=== PATIENT | female | born 1990 | race Caucasian/White ===

== ENCOUNTER 2020-05-21 13:47 | Inpatient (IN) ==
--- NOTE | 2020-05-21 14:34 | History & Physical Report ---
Date of Service May 21, 2020 Assessment & Plan (1) PROM (premature rupture of membranes): (2) 40 weeks gestation of : admit, iv, labs. will plan to induce with pitocin if no labor by 4-6hr from rom. pt declines such now and prefers to see if labor develops. fhts categ 1. History of Present Illness Chief Complaint: leaking since about 1240pm today, clear, one [facility] Primary Care Provider: Compa Lockhart MD 30yo at 40 0/7 wks ega presents to L&D with above cc. Noting some ctx but irregular. No vb. +FM PNC c/b 1. normal plt function analysis test (mother with plt storage pool disease) PNL rh pos, ri, gbs neg OBH: g1 GYNH: nl paps no stds Allergies Allergy/AdvReac Type Severity Reaction Status Date / Time No Known Drug Allergies Allergy Verified 05/16/20 13:41 Home Medications Medication Instructions Recorded Confirmed Type prenat.vits,parag,lll-rkoy-pqtnb 1 tab PO DAILY 09/29/19 05/21/20 History calcium carbonate-vitamin D3 1 tab PO DAILY 05/21/20 05/21/20 History [Calcium + D] Patient History Medical History (Updated 05/21/20 @ 14:34 by Rebecca Arauz MD, FACOG) Asthma Depression Encounter for anatomic survey Hx of varicella Surgical History [place] teeth removed Family History (Updated 09/29/19 @ 09:56 by Monique Vasquez) Grandfather (Paternal) Diabetes Family/Other Type 1 diabetes Mother Storage pool disease Other Asthma Social History (Updated 09/29/19 @ 09:57 by Monique Vasquez) Smoking Status: Never smoker Hx Alcohol Use: No Hx Substance Use: No Preferred Language: Bulgarian Communication Ability: Effective Beliefs That Will Affect Care: None marital status: marital status details: Monty Arevalo (29) [phone] Current Living Situation: Spouse Current Living Situation Comment: lives with spouse, 1 dog current occupational status: employed current occupation: school psychologist Other Information That Helps Us Care for You: No Feels Safe at Home: Yes Safety Concerns: Feels Safe At This Time Physical Exam Constitutional: WD/WN, vitals as above Respiratory: normal respiratory effort, lungs clear to auscultation Cardiovascular: Rate/Rhythm: regular rate and regular rhythm Gastrointestinal (Abdomen): soft gravid nt Musculoskeletal: no edema nontender calves Neurologic: grossly normal Psychiatric: A+Ox3, euthymic affect Genitourinary: OB Exam Abdomen: + estimated weight (7#) Manual OB Exam: + cervical dilation 3 cm, + cervical effacement 80%, + station -2 and + amniotic fluid (+pooling on SSE) clear, nitrazine positive and ferning present OB Exam Monitor Tracing: + external FHT monitor used (130 mod variability), + external uterine monitor used (irreg), + category I and + normal FHT variability Results & Data ([facility]) Vital Signs (Past 12 Hours) Vital Signs Pulse Resp BP 05/21/20 14:03 16 05/21/20 13:57 104 H 117/77 Coding Level of Care Code None Diagnoses PROM (premature rupture of membranes) O42.90 40 weeks gestation of Z3A.40
[2020-05-21] MEDS ORDERED: OXYTOCIN 30 UNITS/500 ML BAG IV PRN (14:35)
[2020-05-21 15:05] LABS: Hematocrit (blood only) 37.9 % (37-47); Hemoglobin 12.7 g/dL (12.0-16.0); Mean Corpuscular Hemoglobin 28.9 pg (25-34); Mean Corpuscular Hgb Conc 33.5 g/dL (32-36); Mean Corpuscular Volume 86.3 fL (80-100); Mean Platelet Volume 10.9 fL (7.4-10.4); Platelet Count 163 K/uL (130-400); RDW Coefficient of Variation 12.8 % (11.5-14.5); RDW Standard Deviation 40.5 fL (36.4-46.3); Red Blood Count 4.39 M/uL (4.2-5.4); White Blood Count 8.26 K/uL (4.8-10.8)
[2020-05-21] MEDS: LACTATED RINGER'S 1,000 ML IV PRN ×3 (16:48→23:27)
[2020-05-21] MEDS ORDERED: ePHEDrine sulfate 50 MG/ML AMP ONE (16:50)
[2020-05-21] MEDS ORDERED: fentaNYL citrate 100 MCG/2 ML VIAL ONE (16:50)
[2020-05-21] MEDS ORDERED: SODIUM CHLORIDE 0.9% INJ 10 ML VIAL ONE (16:50)
[2020-05-21] MEDS ORDERED: fentaNYL 2MCG/ML ROPIVACAINE 1.25MG/ML 100 ML BAG EPI ONE (16:50)
[2020-05-21] MEDS ORDERED: BUPIVACAINE 0.25% 30 ML VIAL ONE (16:50)
--- NOTE | 2020-05-21 17:14 | Anesthesiology Consultation ---
Date of Service May 21, 2020 Assessment & Plan (1) Encounter for pre-operative examination: Chart Review Chart Review: Acceptable Risk for Surgery and Patient NOT seen in Pre Admission Testing Consults Requested none ASA ASA2 Proposed Anesthesia Anesthesia Type: Labor Epidural Risk / Benefits Reviewed With: PT / POA / Parent / Guardian, Accepts Plan and Informed Consent Obtained History Height/Weight Height: 5 ft 1 in Weight: 70.76 kg Allergies Allergy/AdvReac Type Severity Reaction Status Date / Time No Known Drug Allergies Allergy Verified 05/16/20 13:41 Medications Home Medications Medication Instructions Recorded Confirmed Last Taken prenat.vits,parag,umq-tkxc-rkwlk 1 tab PO DAILY 09/29/19 05/21/20 05/20/20 calcium carbonate-vitamin D3 1 tab PO DAILY 05/21/20 05/21/20 05/20/20 [Calcium + D] Active Medications Generic Name Dose Route Start Last Admin Trade Name Freq PRN Reason Stop Dose Admin Lactated Ringer's 1,000 mls @ 125 mls/hr 05/21/20 14:35 05/21/20 16:48 Lr IV 05/23/20 14:34 999 mls/hr .Q8H PRN Administration L&D Protocol Protocol NPO Date Last Intake of Fluids: 05/21/20 Time Last Intake of Fluids: 17:12 Date Last Intake of Solids: 05/21/20 Time Last Intake of Solids: 10:00 Past Medical History Medical History Asthma Depression Encounter for anatomic survey Hx of varicella Exercise / Class Metabolic Activity II 4-5 Yardwork/Stairs/Walk up hill Negative for chest pain or shortness of breath. Past Family History Family History Grandfather (Paternal) Diabetes Family/Other Type 1 diabetes Mother Storage pool disease Other Asthma Past Surgical History Surgical History [place] teeth removed Past Anesthesia History No Hx of Anesthesia Complications History of PONV No Hx of PONV Social History Smoking Status: Never smoker Hx Alcohol Use: No Hx Substance Use: No substance use type: does not use Review of Systems Patient denies history of abnormal bleeding or bleeding disorder. Patient denie s active use of anticoagulants other than low dose aspirin. Patient denies numbness, tingling or weakness in lower extremities. Physical Exam Vital Signs Last Vital Signs Temp 37.3 C 05/21/20 15:25 Pulse 87 05/21/20 17:02 Resp 18 05/21/20 15:43 BP 115/71 05/21/20 17:02 Constitutional not obese (gravid uterus) ENMT Mouth: no TMJ abnormality and oral opening not small Thyromental Distance: > or= 3.5 Finger Breadths Mallampati Class: II Neck normal visual inspection; neck extension not limited Respiratory normal respiratory effort Auscultation: lungs clear to auscultation bilaterally Cardiovascular Rate/Rhythm: regular rate and regular rhythm Heart Sounds: no murmur Neurologic moves all extremities Motor/Sensory: no sensory deficit Psychiatric Orientation: alert and oriented x 3 Testing Laboratory Results 05/21/20 14:48
[2020-05-21] MEDS ORDERED: ePHEDrine sulfate 50 MG/ML AMP IV PRN (18:12)
[2020-05-21] MEDS ORDERED: diphenhydrAMINE 50 MG/ML VIAL IV PRN (18:12)
[2020-05-21] MEDS ORDERED: NALOXONE HCL 0.4 MG/1 ML VIAL/CARP IV PRN (18:12)
[2020-05-21] MEDS ORDERED: fentaNYL 2MCG/ML ROPIVACAINE 1.25MG/ML 100 ML BAG EPI PRN (18:12)
[2020-05-21] MEDS ORDERED: NALOXONE HCL 1 MG in SODIUM CHLORIDE 0.9% 1000ML 1,000 ML IV PRN (18:12)
[2020-05-21] MEDS ORDERED: ONDANSETRON INJ 2 MG/ML 2 ML VIAL IV PRN (18:12)
--- NOTE | 2020-05-21 20:08 | Labor Progress Brief Note ---
Date of Service May 21, 2020 Subjective Reason For Note: Routine Evaluation comfortable with epidural Assessment & Plan (1) 40 weeks gestation of : (2) PROM (premature rupture of membranes): good cx change. spont labor pattern. fhts categ 1. Admission and Anticipated Discharge Date Admission Date: May 21, 2020 Physical Exam Constitutional: WD/WN, vitals as above Genitourinary: Manual OB Exam: + cervical dilation 5 cm, + cervical effacement 90% and + station -1 OB Exam Monitor Tracing: + external FHT monitor used (130 mod variability, reactive), + external uterine monitor used (q3), + category I and + normal FHT variability Results & Data ([facility]) Vital Signs (Past 12 Hours) Vital Signs Temp Pulse Resp BP Pulse Ox 05/21/20 20:03 83 119/69 05/21/20 20:02 82 97 05/21/20 19:57 94 H 97 05/21/20 19:52 89 97 05/21/20 19:48 79 112/68 05/21/20 19:47 85 97 05/21/20 19:42 93 H 97 05/21/20 19:38 97 H 110/66 05/21/20 19:37 90 97 05/21/20 19:32 86 97 05/21/20 19:29 99 H 109/64 05/21/20 19:27 91 H 97 05/21/20 19:22 100 H 96 05/21/20 19:17 96 H 105/64 97 05/21/20 19:12 88 97 05/21/20 19:08 90 110/66 05/21/20 19:07 98.8 F 87 18 97 05/21/20 19:02 87 98 05/21/20 19:00 18 05/21/20 18:59 91 H 110/68 05/21/20 18:57 86 97 05/21/20 18:52 91 H 97 05/21/20 18:47 88 110/65 96 05/21/20 18:42 93 H 97 05/21/20 18:38 86 110/65 05/21/20 18:37 77 98 05/21/20 18:32 94 H 98 05/21/20 18:30 16 05/21/20 18:27 83 97 05/21/20 18:26 89 112/67 05/21/20 18:24 89 117/74 05/21/20 18:22 90 117/70 98 05/21/20 18:20 91 H 115/69 05/21/20 18:18 99 H 112/69 05/21/20 18:17 97 H 98 05/21/20 18:16 88 109/62 05/21/20 18:14 90 108/62 05/21/20 18:12 89 109/64 97 05/21/20 18:10 94 H 110/64 05/21/20 18:08 93 H 110/66 05/21/20 18:07 94 H 98 05/21/20 18:06 90 108/63 05/21/20 18:04 86 110/65 05/21/20 18:02 86 116/65 99 05/21/20 17:58 88 124/69 05/21/20 17:57 91 H 130/75 100 05/21/20 17:54 82 119/75 05/21/20 17:52 93 H 98 05/21/20 17:47 91 H 124/79 96 05/21/20 17:42 98 H 98 05/21/20 17:39 88 120/80 05/21/20 17:38 87 94 05/21/20 17:35 88 99 05/21/20 17:30 75 20 99 05/21/20 17:17 73 112/61 05/21/20 17:02 87 115/71 05/21/20 17:00 98.6 F 20 05/21/20 16:47 86 109/58 L 05/21/20 15:43 18 05/21/20 15:30 18 05/21/20 15:25 99.1 F 05/21/20 15:21 89 112/71 05/21/20 15:00 16 05/21/20 14:15 20 05/21/20 14:03 16 05/21/20 13:57 104 H 117/77 Coding Level of Care Code None Diagnoses 40 weeks gestation of Z3A.40 PROM (premature rupture of membranes) O42.90
[2020-05-21] MEDS ORDERED: ACETAMINOPHEN 325 MG TAB PO PRN (23:54)
[2020-05-21] MEDS ORDERED: AMPICILLIN 2,000 MG in SODIUM CHLOR 0.9% AD-VAN 100 ML IV STA (23:55)
[2020-05-21] MEDS ORDERED: ACETAMINOPHEN 325 MG TAB ONE (23:57)
[2020-05-22] MEDS ORDERED: OXYTOCIN 30 UNITS/500 ML BAG IV PRN ×2 (00:06→03:38)
[2020-05-22] MEDS ORDERED: BUPIVACAINE 0.25% 30 ML VIAL ONE (00:33)
--- NOTE | 2020-05-22 03:13 | Labor Progress Brief Note ---
Date of Service May 22, 2020 Subjective Reason For Note: Routine Evaluation pt pushing, denies pain, can feel her ctx Assessment & Plan (1) 40 weeks gestation of : (2) PROM (premature rupture of membranes): cont 2nd stage. fhts categ 2. Admission and Anticipated Discharge Date Admission Date: May 21, 2020 Physical Exam Constitutional: WD/WN, vitals as above Genitourinary: Manual OB Exam: + cervical dilation 10 cm, + cervical effacement 100% and + station + 3 OB Exam Monitor Tracing: + external FHT monitor used (165 mod variability, +scalp stim response, variables), + external uterine monitor used (q2-3), + category II and + normal FHT variability Results & Data ([facility]) Vital Signs (Past 12 Hours) Vital Signs Temp Pulse Resp BP Pulse Ox 05/22/20 03:08 80 91 05/22/20 03:06 98.8 F 18 05/22/20 03:05 76 96 05/22/20 03:04 78 115/57 L 05/22/20 03:01 82 18 89 L 05/22/20 03:00 76 97 05/22/20 02:55 72 98 05/22/20 02:54 67 81 L 05/22/20 02:50 69 98 05/22/20 02:48 77 106/58 L 05/22/20 02:44 171 H 97 05/22/20 02:40 74 88 L 05/22/20 02:39 76 97 05/22/20 02:34 97 H 98 05/22/20 02:32 82 18 88 L 05/22/20 02:29 79 97 05/22/20 02:26 79 92 05/22/20 02:24 71 97 05/22/20 02:19 107 H 97 05/22/20 02:18 62 111/56 L 05/22/20 02:14 75 97 05/22/20 02:11 73 92 05/22/20 02:09 86 97 05/22/20 02:05 80 112/58 L 86 L 05/22/20 02:04 73 97 05/22/20 02:01 18 05/22/20 01:59 86 97 05/22/20 01:58 69 86 L 05/22/20 01:53 68 97 05/22/20 01:49 107 H 97/55 L 05/22/20 01:48 101 H 97 05/22/20 01:43 72 96 05/22/20 01:38 65 97 05/22/20 01:35 62 96/51 L 05/22/20 01:33 61 96 05/22/20 01:28 67 96 05/22/20 01:23 70 96 05/22/20 01:20 64 94 05/22/20 01:19 62 94/51 L 05/22/20 01:18 63 95 05/22/20 01:13 69 96 05/22/20 01:08 74 94 05/22/20 01:04 68 96/55 L 05/22/20 01:03 71 96 05/22/20 01:01 18 05/22/20 00:58 74 96 05/22/20 00:53 73 95 05/22/20 00:52 99.9 F H 18 05/22/20 00:48 77 94/50 L 95 05/22/20 00:47 76 94 05/22/20 00:43 101 H 97 05/22/20 00:40 91 H 109/57 L 93 05/22/20 00:38 89 98 05/22/20 00:35 88 113/57 L 05/22/20 00:33 96 H 97 05/22/20 00:28 96 H 97 05/22/20 00:23 93 H 97 05/22/20 00:19 96 H 110/56 L 05/22/20 00:18 94 H 96 05/22/20 00:13 94 H 97 05/22/20 00:08 91 H 97 05/22/20 00:03 96 H 112/60 97 05/22/20 00:01 20 05/21/20 23:58 93 H 96 05/21/20 23:56 97 H 86 L 05/21/20 23:53 108 H 117/58 L 96 05/21/20 23:51 100 H 88 L 05/21/20 23:50 100.8 F H 05/21/20 23:48 101 H 96 05/21/20 23:42 106 H 98 05/21/20 23:37 108 H 96 05/21/20 23:34 96 H 124/58 L 05/21/20 23:32 96 H 97 05/21/20 23:27 100.0 F H 95 H 18 97 05/21/20 23:24 109 H 91 05/21/20 23:22 100 H 98 05/21/20 23:19 103 H 120/69 05/21/20 23:17 101 H 96 05/21/20 23:12 93 H 97 05/21/20 23:07 100 H 97 05/21/20 23:03 108 H 111/61 05/21/20 23:02 109 H 96 05/21/20 22:57 107 H 97 05/21/20 22:52 99 H 96 05/21/20 22:48 105 H 117/65 05/21/20 22:47 104 H 97 05/21/20 22:42 114 H 97 05/21/20 22:37 107 H 96 05/21/20 22:34 100 H 119/66 05/21/20 22:32 104 H 97 05/21/20 22:31 99.3 F 18 05/21/20 22:27 98 H 97 05/21/20 22:22 109 H 97 05/21/20 22:19 93 H 114/68 05/21/20 22:17 92 H 98 05/21/20 22:12 85 98 05/21/20 22:07 98 H 99 05/21/20 22:04 111 H 122/65 05/21/20 22:02 109 H 100 05/21/20 21:57 88 97 05/21/20 21:52 89 98 05/21/20 21:50 76 103/50 L 05/21/20 21:47 74 97 05/21/20 21:42 84 97 05/21/20 21:37 82 97 05/21/20 21:35 72 104/53 L 05/21/20 21:32 86 98 05/21/20 21:27 85 97 05/21/20 21:22 75 97 05/21/20 21:18 79 102/57 L 05/21/20 21:17 77 98 05/21/20 21:12 85 97 05/21/20 21:07 78 98 05/21/20 21:04 71 106/54 L 05/21/20 21:02 72 98 05/21/20 20:57 76 98 05/21/20 20:52 86 98 05/21/20 20:48 91 H 112/74 05/21/20 20:47 89 97 05/21/20 20:42 89 97 05/21/20 20:37 94 H 97 05/21/20 20:34 94 H 109/65 05/21/20 20:32 96 H 96 05/21/20 20:27 87 96 05/21/20 20:26 98.8 F 18 05/21/20 20:22 88 96 05/21/20 20:18 74 114/68 05/21/20 20:17 84 96 05/21/20 20:12 95 H 97 05/21/20 20:07 86 97 05/21/20 20:03 83 119/69 05/21/20 20:02 82 97 05/21/20 19:57 94 H 97 05/21/20 19:54 18 05/21/20 19:52 89 97 05/21/20 19:48 79 112/68 05/21/20 19:47 85 97 05/21/20 19:42 93 H 97 05/21/20 19:38 97 H 110/66 05/21/20 19:37 90 97 05/21/20 19:32 86 97 05/21/20 19:29 99 H 109/64 05/21/20 19:27 91 H 97 05/21/20 19:22 100 H 96 05/21/20 19:17 96 H 105/64 97 05/21/20 19:12 88 97 05/21/20 19:08 90 110/66 05/21/20 19:07 98.8 F 87 18 97 05/21/20 19:02 87 98 05/21/20 19:00 18 05/21/20 18:59 91 H 110/68 05/21/20 18:57 86 97 05/21/20 18:52 91 H 97 05/21/20 18:47 88 110/65 96 05/21/20 18:42 93 H 97 05/21/20 18:38 86 110/65 05/21/20 18:37 77 98 05/21/20 18:32 94 H 98 05/21/20 18:30 16 05/21/20 18:27 83 97 05/21/20 18:26 89 112/67 05/21/20 18:24 89 117/74 05/21/20 18:22 90 117/70 98 12/28/20 18:20 91 H 115/69 05/21/20 18:18 99 H 112/69 05/21/20 18:17 97 H 98 05/21/20 18:16 88 109/62 05/21/20 18:14 90 108/62 05/21/20 18:12 89 109/64 97 05/21/20 18:10 94 H 110/64 05/21/20 18:08 93 H 110/66 05/21/20 18:07 94 H 98 05/21/20 18:06 90 108/63 05/21/20 18:04 86 110/65 05/21/20 18:02 86 116/65 99 05/21/20 17:58 88 124/69 05/21/20 17:57 91 H 130/75 100 05/21/20 17:54 82 119/75 05/21/20 17:52 93 H 98 05/21/20 17:47 91 H 124/79 96 05/21/20 17:42 98 H 98 05/21/20 17:39 88 120/80 05/21/20 17:38 87 94 05/21/20 17:35 88 99 05/21/20 17:30 75 20 99 05/21/20 17:17 73 112/61 05/21/20 17:02 87 115/71 05/21/20 17:00 98.6 F 20 05/21/20 16:47 86 109/58 L 05/21/20 15:43 18 05/21/20 15:30 18 05/21/20 15:25 99.1 F 05/21/20 15:21 89 112/71 Coding Level of Care Code None Diagnoses 40 weeks gestation of Z3A.40 PROM (premature rupture of membranes) O42.90
[2020-05-22] MEDS ORDERED: oxyCODONE/ACETAMINOPHEN 5mg/325mg TAB PO PRN (03:38)
[2020-05-22] MEDS ORDERED: ACETAMINOPHEN 325 MG TAB PO PRN (03:38)
--- NOTE | 2020-05-22 03:40 | Delivery Summary ---
Vaginal Delivery Summary Date of Service May 22, 2020 The patient dilated to complete and pushed to deliver a viable male Apga rs 8 and 10 via over first degree perineal laceration. Mouth and nose bulb suctioned at perineum. Shoulders and body delivered with ease. Infant was vigorous and crying at . Cord clamped at 30 seconds of life and to maternal abdomen where the cord was then doubly clamped and cut. Placenta delivered spontaneously and intact, three-vessel cord. Hemostasis achieved with dilute pitocin and uterine massage and drainage of the bladder for approximately 5 cc under sterile conditions. Laceration repaired in routine fashion with 3-0 vicryl. Bilateral labial lacerations reapproximated with 3-0 and 4-0 vicryl. Cervix and sulci intact. EBL 300 cc. Mother and baby stable recovery. MNP Vaginal Delivery Charge Vaginal Delivery Codes: 41947 global code for the antepartum, delivery, and post-
[2020-05-22] MEDS ORDERED: OXYTOCIN 20 UNITS in LACTATED RINGER'S 1,000 ML IV SCH (03:45)
[2020-05-22] MEDS ORDERED: DIPHTHERIA/TETANUS/PERTUSSIS 0.5 ML SYR/VIAL IM ONE (03:47)
[2020-05-22] MEDS ORDERED: BENZOCAINE 20% AER SPR 82.5 GM CAN EXT PRN (03:47)
[2020-05-22] MEDS ORDERED: HYDROCORTISONE ACETATE 25 MG SUPP PR PRN (03:47)
[2020-05-22] MEDS ORDERED: SUPERCREAM 0.870% 15 GM JAR EXT PRN (03:47)
--- NOTE | 2020-05-22 05:09 | Anesthesia Procedure Note ---
Date of Service May 22, 2020 Anesthesia Post Epidural Note Vital Signs Vital Signs: Temp Pulse Resp BP Pulse Ox 37.1 C 78 18 108/59 L 96 05/22/20 03:06 05/22/20 04:58 05/22/20 04:50 05/22/20 04:58 05/22/20 03:35 Notes Mental Status: alert / awake / arousable and participated in evaluation Nausea / Vomiting: adequately controlled Pain: adequately controlled Airway Patency, RR, SpO2: stable & adequate BP & HR: stable & adequate Hydration State: stable & adequate Neuraxial Anesthesia: was administered and sensory block is resolving Anesthetic Complications: no major complications apparent and Pt Satisfied with anesthetic care Epidural: Removed without complications and With tip intact
[2020-05-22] MEDS: IBUPROFEN 600 MG TAB PO PRN ×4 (08:32→20:58)
[2020-05-22] MEDS: PRENATAL VITAMIN 1 TAB PO SCH (08:32)
[2020-05-22] MEDS: DOCUSATE SODIUM 100 MG CAP PO SCH ×2 (08:33→20:59)
--- NOTE | 2020-05-23 05:21 | Obstetrical Progress Note ---
Date of Service May 23, 2020 Assessment & Plan (1) : S/p Day 1 - Feels well today. Eating well, voiding well, ambulating well. - Pain well-controlled with ibuprofen 600mg Q4H PRN. - Vital signs reviewed and WNL. - Hemoglobin reviewed. 12.7 (pre-) - Blood Type: A+, antibody negative, GBS negative, Rubella Immune, COVID-19 negative - Continue routine care: encourage ambulation, monitor and control pain with Motrin PRN, continue regular OB diet, monitor lochia - Encourage breast feeding. - Pt counselled on discharge instructions - After discharge, will have 6-wk follow-up with Dr. Arauz Admission and Anticipated Discharge Date Admission Date: May 21, 2020 Supervising Physician Co-Signing Physician Notes Patient seen and evaluated and agree with the above findings and plan. Stable for discharge today per patient request Subjective HPI Luanne Arevalo is a 30 y/o female who is PPD 1 spontaneous vaginal delivery at 40w1d. She reports feeling well overall this morning. No abdominal cramping and 0-2/10 pain well managed on analgesics. Voiding well. Tolerating meals overnight without difficulty. Patient has been able to ambulate some. passing gas and no bowel movement. Has persistent lochia with no improvement this morning. Currently . Review of Systems Review of Systems: ROS Denies fever or chills. Denies shortness of breath or cough. Denies chest pain. Denies breast pain. Denies dysuria. Denies leg pain or leg swelling. Physical Exam Physical Exam: General: Alert, oriented. No acute distress. Cardiac: Regular rate and rhythm. No murmurs. Respiratory: Clear to auscultation bilaterally a/p, no wheezes/rales/rhonchi. No increased work of breathing. Symmetrical chest rise. No respiratory distress. Abdomen: Soft, nontender, nondistended. Bowel sounds present. Uterus: Uterine fundus firm, palpable at umbilicus. Lower Extremities: No lower extremity edema or swelling. No deep calf pain. Tania's negative bilaterally. Results & Data ([facility]) Vital Signs (Past 12 Hours) Vital Signs Temp Pulse Resp BP 05/23/20 00:15 36.4 C L 66 16 105/69 05/22/20 19:45 36.5 C 69 16 105/66 Resident Activity Tracking Resident Involvement: Resident Care Provided Care Provided: Adult [facility]
[2020-05-23] MEDS: DOCUSATE SODIUM 100 MG CAP PO SCH (07:57)
[2020-05-23] MEDS: PRENATAL VITAMIN 1 TAB PO SCH (07:57)
== END 2020-05-23 13:00 | disposition home or self-care (01) | DRG 807 ==
LOC: OPB 13:47 → 4S1 13:48 → 4S2 05-22 05:54

== ENCOUNTER 2024-04-01 16:51 | Inpatient (IN) ==
[2024-04-01] MEDS ORDERED: OXYTOCIN 30 UNITS/NSS 30 UNITS/500 ML BAG IV PRN (17:14)
[2024-04-01] MEDS ORDERED: LIDOCAINE 1% LOCAL 20 ML VIAL INFIL PRN (17:14)
--- NOTE | 2024-04-01 17:19 | History & Physical Report ---
Date of Service April 01, 2024 Assessment & Plan (1) SROM (spontaneous rupture of membranes): Plan: 34 yo at 39 4/7 wga presents w/ srom VSS Fetus cat 1 Labor - augment prn GBS neg desires epidrual History of Present Illness Chief Complaint: SROM Primary Care Provider: NO PCP 34 yo at 39 4/7 wga presents w/ srom/labor. +FM; denies vb. 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 Past order booker hx: G1 2019 G2 current denies hx stis Allergies Allergy/AdvReac Type Severity Reaction Status Date / Time No Known Drug Allergies Allergy Unknown Verified 04/01/24 17:07 Home Medications Medication Instructions Recorded Confirmed Type 21-iron fu-folic acid 1 tab PO DAILY 08/19/23 04/01/24 History [ Complete] Patient History Medical History (Updated 04/01/24 @ 17:18 by Ese Horton MD) (spontaneous vaginal delivery) 2019 Encounter for pre-operative examination Hx of varicella + chicken pox Depression Asthma Surgical History [place] teeth removed Family History Grandfather (Paternal) Diabetes Prostate cancer Family/Other Type 1 diabetes Mother Storage pool disease Father Prostate cancer, Onset Age: 65 Other Asthma Denies family history of Ovarian cancer Breast cancer Colorectal cancer Social History Smoking Status: Never smoker Do You Dip or Chew Tobacco: No; Hx Alcohol Use: No Hx Substance Use: No Preferred Language: Turkmen Communication Ability: Effective Beliefs That Will Affect Care: None marital status: marital status details: Monty Arevalo (33) [phone] Current Living Situation: Spouse and Family Current Living Situation Comment: lives with spouse, child, 1 dog 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 Feels Safe at Home: Yes Assistive Devices: None Physical Exam Genitourinary: OB Exam Abdomen: + vertex Manual OB Exam: + cervical dilation 3 cm, + cervical effacement 70% and + station -2 OB Exam Monitor Tracing: + external FHT monitor used, + external uterine monitor used (q2-5) and + category I (120/mod/+accel/-decel) Results & Data Vital Signs (Past 12 Hours) Vital Signs Pulse BP 04/01/24 17:03 79 115/67 Laboratory Results OB Labs: Blood Type A Positive 08/20/23 Antibody Screen NEGATIVE 08/20/23 Hgb 11.5 g/dl (12.0-16.0) L 01/11/24 Hct 35.0 % (37.0-47.0) L 01/11/24 MCV 82.4 fL (80.0-100.0) 08/20/23 Plt Count 307 K/uL (130-400) 08/20/23 Rubella IgG Antibody Immune (Immune) 08/20/23 RPR Nonreactive (Nonreactive) 08/20/23 Treponema pallidum Ab Negative (Negative) 01/11/24 Hep Bs Antigen Neg (Neg) 10/04/19 Hep Bs Antigen NON-REACTIVE (NON-REACTIVE) 08/20/23 Hepatitis C Ab (EIA) NON-REACTIVE (NON-REACTIVE) 08/20/23 HIV 1&2 Ab/P24 Ag 4thGn Neg (Neg) 10/04/19 HIV (1&2) Ag & Ab Conf NON-REACTIVE (NON-REACTIVE) 08/20/23 Glucose 1 Hr 50 gm 116 mg/dl (70-130) 01/11/24 Maternal Serum AFP 30.3 ng/mL 10/23/23 OB Optional Labs: Chlamydia trachomatis RNA Not Detected (NotDetected) 08/20/23 Neisseria gonorrhoeae RNA Not Detected (NotDetected) 08/20/23 Alpha Fetoprotein Triple Screen SEE NOTE 10/23/23 Labs Reviewed: (-) CF/SMA Normal cfDNA 09/23 silent 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
[2024-04-01] MEDS: LACTATED RINGER'S 1,000 ML IV SCH (17:22)
[2024-04-01 17:42] LABS: Hemoglobin 12.6 g/dl (12.0-16.0); Mean Corpuscular Hemoglobin 28.8 pg (25.0-34.0); Mean Corpuscular Hgb Conc 34.1 g/dL (32.0-36.0); Mean Corpuscular Volume 84.7 fL (80.0-100.0); Mean Platelet Volume 10.2 fL (9.4-12.4); Platelet Count 192 K/uL (130-400); RDW Coefficient of Variation 12.9 % (11.5-14.5); RDW Standard Deviation 39.8 fL (36.4-46.3); Red Blood Count 4.37 M/uL (4.20-5.40)
--- NOTE | 2024-04-01 18:00 | Anesthesiology Consultation ---
Date of Service April 01, 2024 Assessment & Plan Chart Review Chart Review: Patient NOT seen in Pre Admission Testing and Acceptable Risk for Labor Epidural Consults Requested none ASA ASA2 Proposed Anesthesia Anesthesia Type: Labor Epidural Risk / Benefits Reviewed With: PT / POA / Parent / Guardian, Accepts Plan and Informed Consent Obtained History Height/Weight Height: 5 ft 1 in Weight: 73.482 kg Allergies Allergy/AdvReac Type Severity Reaction Status Date / Time No Known Drug Allergies Allergy Unknown Verified 04/01/24 17:07 Medications Home Medications Medication Instructions Recorded Confirmed Last Taken 21-iron fu-folic acid 1 tab PO DAILY 08/19/23 04/01/24 04/01/24 [ Complete] NPO Date Last Intake of Fluids: 04/01/24 Time Last Intake of Fluids: 17:45 Date Last Intake of Solids: 04/01/24 Time Last Intake of Solids: 15:30 Past Medical History Medical History (spontaneous vaginal delivery) 2020 Encounter for pre-operative examination Hx of varicella + chicken pox Depression Asthma Exercise / Class Metabolic Activity 1 > 8 Run/Swim/Ski/Tennis Past Family History Family History Grandfather (Paternal) Diabetes Prostate cancer Family/Other Type 1 diabetes Mother Storage pool disease Father Prostate cancer, Onset Age: 65 Other Asthma Denies family history of Ovarian cancer Breast cancer Colorectal cancer Past Surgical History Surgical History [place] teeth removed Past Anesthesia History No Hx of Anesthesia Complications and No Family Hx of Anesthesia Complications History of PONV No Hx of PONV and No Hx of Motion Sickness Social History Smoking Status: Never smoker Do You Dip or Chew Tobacco: No Hx Alcohol Use: No Hx Substance Use: No substance use type: does not use Review of Systems ROS Unobtainable: All systems reviewed & are unremarkable except as noted in HPI & below Physical Exam Vital Signs Last Vital Signs Temp 36.6 C 04/01/24 17:04 Pulse 79 04/01/24 17:03 Resp 18 04/01/24 17:04 BP 115/67 04/01/24 17:03 ENMT Mouth: no TMJ abnormality Thyromental Distance: > or= 3.5 Finger Breadths Mallampati Class: II Neck normal visual inspection and trachea midline; neck extension not limited Respiratory normal respiratory effort Auscultation: lungs clear to auscultation bilaterally Cardiovascular Rate/Rhythm: regular rate and regular rhythm Heart Sounds: no murmur Musculoskeletal Spine: normal cervical ROM Extremities: full ROM of extremities Neurologic moves all extremities Psychiatric Orientation: alert and oriented x 3 Testing Laboratory Results 04/01/24 17:20
[2024-04-01] MEDS: BUPIVACAINE 0.25% PF 30 ML VIAL ONE (18:14)
[2024-04-01] MEDS: LIDOCAINE 2%/EPINEPHRINE 1:200,000 20 ML PF ONE (18:14)
[2024-04-01] MEDS: fentANYL 2 MCG/ML BUPIVacaine 0.125%-NSS 100ML BAG ONE (18:14)
[2024-04-01] MEDS: fentaNYL citrate PF 100 MCG/2 ML VIAL ONE (18:14)
[2024-04-01] MEDS ORDERED: diphenhydrAMINE 50 MG/ML VIAL IV PRN (18:15)
[2024-04-01] MEDS ORDERED: NALOXONE HCL 1 MG in SODIUM CHLORIDE 0.9% 1,000 ML IV PRN (18:15)
[2024-04-01] MEDS ORDERED: fentANYL 2 MCG/ML BUPIVacaine 0.125%-NSS 100ML BAG EPI PRN (18:15)
[2024-04-01] MEDS ORDERED: fentaNYL citrate PF 100 MCG/2 ML VIAL EPI PRN (18:15)
[2024-04-01] MEDS ORDERED: BUPIVACAINE 0.25% PF 30 ML VIAL EPI PRN (18:15)
[2024-04-01] MEDS ORDERED: ePHEDrine sulfate 50 MG/ML AMP IV PRN (18:15)
[2024-04-01] MEDS ORDERED: NALOXONE HCL 0.4 MG/1 ML VIAL/CARP IV PRN (18:15)
[2024-04-01] MEDS ORDERED: SODIUM CHLORIDE 0.9% PF INJ 10 ML VIAL EPI PRN (18:15)
[2024-04-01] MEDS ORDERED: NALBUPHINE HCL INJ 10 MG/ML AMP IV PRN (18:15)
[2024-04-01] MEDS ORDERED: LIDOCAINE 2% MPF LOCAL 5 ML VIAL EPI PRN (18:15)
[2024-04-01] MEDS ORDERED: ROPIVACAINE 0.5% PF 5 MG/ML 20 ML VIAL EPI PRN (18:15)
[2024-04-01] MEDS: ePHEDrine sulfate 50 MG/ML AMP ONE (18:22)
[2024-04-01] MEDS: fentaNYL citrate PF 100 MCG/2 ML VIAL EPI STA (18:24)
[2024-04-01] MEDS: LIDOCAINE 2%/EPINEPHRINE 1:200,000 20 ML PF EPI STA (18:24)
[2024-04-01] MEDS: SODIUM CHLORIDE 0.9% PF INJ 10 ML VIAL EPI STA (18:24)
[2024-04-01] MEDS: SODIUM CHLORIDE 0.9% PF INJ 10 ML VIAL ONE (18:24)
[2024-04-01] MEDS: BUPIVACAINE 0.25% PF 30 ML VIAL EPI STA (18:24)
--- NOTE | 2024-04-01 20:09 | Labor Progress Brief Note ---
Date of Service April 01, 2024 Subjective Comfortable w/ epidural Assessment & Plan (1) SROM (spontaneous rupture of membranes): Plan: 34 yo at 39 4/7 wga presents w/ srom VSS Fetus cat 1 Labor - good progress, augment prn GBS neg epidural in place Admission and Anticipated Discharge Date Admission Date: April 01, 2024 Physical Exam Genitourinary: Manual OB Exam: + cervical dilation 8 cm, + cervical effacement 90% and + station 0 OB Exam Monitor Tracing: + external FHT monitor used, + external uterine monitor used (q2-3) and + category I (120/mod/+accel/-decel) Results & Data Vital Signs (Past 12 Hours) Vital Signs Temp Pulse Resp BP Pulse Ox 04/01/24 20:03 78 97 04/01/24 20:01 94 H 110/62 04/01/24 19:58 88 98 04/01/24 19:57 88 110/62 04/01/24 19:53 81 97 04/01/24 19:51 83 108/56 L 04/01/24 19:48 92 H 97 04/01/24 19:47 80 116/61 04/01/24 19:43 91 H 97 04/01/24 19:42 84 115/63 04/01/24 19:38 94 H 97 04/01/24 19:37 79 104/62 04/01/24 19:33 85 96 04/01/24 19:32 87 108/58 L 04/01/24 19:30 18 04/01/24 19:30 18 04/01/24 19:28 93 H 98 04/01/24 19:26 95 H 110/57 L 04/01/24 19:23 81 97 04/01/24 19:21 85 105/60 04/01/24 19:18 83 98 04/01/24 19:16 95 H 107/61 04/01/24 19:15 98.1 F 04/01/24 19:13 81 98 04/01/24 19:11 89 108/62 04/01/24 19:08 93 H 98 04/01/24 19:06 95 H 114/64 04/01/24 19:03 98 04/01/24 19:03 81 04/01/24 19:03 80 99/55 L 04/01/24 18:58 91 H 98 04/01/24 18:57 76 98/55 L 04/01/24 18:53 74 98 04/01/24 18:52 75 101/50 L 04/01/24 18:48 88 98 04/01/24 18:47 76 99/55 L 04/01/24 18:46 76 93 04/01/24 18:43 74 98 04/01/24 18:41 75 95/54 L 04/01/24 18:38 74 98 04/01/24 18:37 75 104/54 L 04/01/24 18:33 76 98 04/01/24 18:30 81 20 101/55 L 04/01/24 18:28 73 67/49 L 98 04/01/24 18:26 77 101/51 L 04/01/24 18:24 74 101/54 L 04/01/24 18:23 75 98 04/01/24 18:22 76 99/53 L 04/01/24 18:20 82 85/46 L 04/01/24 18:18 75 90/49 L 98 04/01/24 18:16 78 92/55 L 04/01/24 18:15 18 04/01/24 18:15 18 04/01/24 18:13 79 112/56 L 98 04/01/24 18:08 83 98 04/01/24 18:03 85 97 04/01/24 17:58 87 96 04/01/24 17:04 97.9 F 18 04/01/24 17:03 79 115/67 Coding Level of Care Code None Diagnoses SROM (spontaneous rupture of membranes)
[2024-04-01] MEDS: OXYTOCIN 30 UNITS/NSS 30 UNITS/500 ML BAG IV PRN (21:42)
[2024-04-01] MEDS ORDERED: HYDROCORTISONE ACETATE 25 MG SUPP PR PRN (21:46)
[2024-04-01] MEDS ORDERED: BENZOCAINE 20% SPRY 85 APPLN/85 GM CAN EXT PRN (21:46)
--- NOTE | 2024-04-01 21:49 | Delivery Summary ---
Vaginal Delivery Summary Date of Service April 01, 2024 Vaginal Delivery Summary [facility] PREOPERATIVE DIAGNOSIS: 1. Single intrauterine at 39 4/7 wga 2. SROM 3. Labor POSTOPERATIVE DIAGNOSIS: 1. Single intrauterine at 39 4/7 wga 2. SROM 3. Labor 4. Delivered PROCEDURE: 1. Normal spontaneous vaginal delivery. SURGEON: Ese Horton MD ANESTHESIA: Epidural. QUANTITATIVE BLOOD LOSS: 12 mL FLUIDS: Continuous LR. URINE OUTPUT: None. COMPLICATIONS: None. CONDITION: Stable. INDICATIONS: 34 yo at 39 4/7 wga presented with SROM. She was 3cm on arrival. She received an epidural for pain control and progressed to complete and desired to push. FINDINGS: A viable male , weight pending with Apgars of 8 and 9 at 1 and 5 minutes respectively. SPECIMEN: Cord blood OPERATIVE REPORT: The patient progressed to 10 cm, 100% effaced and +2 station, pushed over intact perineum with anesthesia to deliver a viable male , weight and Apgars as above. Head of delivered in MEHUL position. No nuchal cord was present. Body and shoulders were delivered without difficulty. was delivered to maternal abdomen and nursing staff. Delayed cord clamping was performed for 60 seconds. Cord was clamped and cut. Cord blood was obtained. P lacenta delivered spontaneously intact with 3-vessel cord. IV oxytocin and fundal massage were given for excellent hemostasis. Vagina, cervix, perineum, and placenta were inspected. No lacerations were noted. Sponge and needle counts correct x2. No sponges were left behind. Mother and stable in immediate period. [facility] Vaginal Delivery Charge Vaginal Delivery Codes: 46222 global code for the antepartum, delivery, and post- Delivery Type Details: [facility]
[2024-04-02] MEDS: ACETAMINOPHEN 325 MG TAB PO PRN (03:36)
[2024-04-02] MEDS: DIPHTHER/TETAN/PERTUS Vaccine (Tdap, Adol/Adult) 0.5mL IM ONE (04:13)
[2024-04-02] MEDS: IBUPROFEN 600 MG TAB PO PRN (07:40)
[2024-04-02] MEDS: DOCUSATE SODIUM 100 MG CAP PO SCH (07:40)
[2024-04-02] MEDS: PRENATAL VITAMIN 1 TAB PO SCH (07:40)
[2024-04-02] MEDS: FERROUS SULFATE 325 MG TAB PO SCH (07:40)
--- NOTE | 2024-04-02 08:10 | Anesthesia Procedure Note ---
Date of Service April 02, 2024 Anesthesia Post Epidural Note Vital Signs Vital Signs: Temp Pulse Resp BP Pulse Ox O2 Del Method 36.6 C 80 18 107/62 98 Room Air 04/02/24 03:45 04/02/24 03:45 04/02/24 03:45 04/02/24 03:45 04/02/24 03:45 04/02/24 03:45 Pain Intensity Abdomen: Pain Intensity: 6 Lower Back: Pain Intensity: 3 Notes Mental Status: alert / awake / arousable and participated in evaluation Nausea / Vomiting: adequately controlled Pain: adequately controlled Airway Patency, RR, SpO2: stable & adequate BP & HR: stable & adequate Hydration State: stable & adequate Neuraxial Anesthesia: was administered and sensory block is resolving Anesthetic Complications: no major complications apparent and Pt Satisfied with anesthetic care Epidural: Removed without complications and With tip intact
--- NOTE | 2024-04-02 08:35 | Obstetrical Progress Note ---
Date of Service April 02, 2024 Assessment & Plan (1) Encounter for care and examination after delivery: 34 yo PP1 from , doing well -Meeting all pp milestones -Rh+/rubella immune/ -f/u 6 weeks for appt, desires dc at 24 hrs Subjective Ambulation: ambulating normally Voiding: no voiding problems Passing Gas:: Yes Diet Tolerance:: regular diet Lochia:: Small Feeding Type:: breast feeding Pain well managed with medication Review of Systems Denies fevers, chills, n/v, MAYS, CP, SOB Physical Exam Constitutional WD/WN, vitals as above no acute distress Respiratory normal respiratory effort, lungs clear to auscultation Gastrointestinal (Abdomen) Percussion/Palpation: abdomen soft; abdomen nontender fundus firm at umbilicus and NT Musculoskeletal BLE symmetric, nonerythematous, nontender Results & Data Vital Signs (Past 12 Hours) Vital Signs Temp Pulse Pulse Resp BP BP Pulse Ox 04/02/24 03:45 97.9 F 80 18 107/62 98 04/01/24 23:47 88 99/50 L 04/01/24 23:45 98.1 F 18 04/01/24 23:33 92 H 107/57 L 04/01/24 23:18 96 H 107/56 L 04/01/24 23:15 18 04/01/24 23:03 81 114/59 L 04/01/24 22:48 93 H 116/62 04/01/24 22:45 18 04/01/24 22:33 99 H 110/56 L 04/01/24 22:30 18 04/01/24 22:18 87 112/60 04/01/24 22:15 18 04/01/24 22:11 89 114/60 04/01/24 22:00 16 04/01/24 21:48 103 H 95 04/01/24 21:46 100 H 102/51 L 04/01/24 21:45 18 04/01/24 21:43 95 H 97 04/01/24 21:41 83 109/51 L 04/01/24 21:38 83 97 04/01/24 21:37 78 118/61 04/01/24 21:34 99 H 83 L 04/01/24 21:33 98 H 117/57 L 94 04/01/24 21:28 94 H 97 04/01/24 21:26 90 89 L 04/01/24 21:23 93 H 98 04/01/24 21:21 88 107/54 L 04/01/24 21:19 86 89 L 04/01/24 21:18 77 97 04/01/24 21:14 126 H 93 04/01/24 21:13 105 H 97 04/01/24 21:11 108 H 139/58 L 04/01/24 21:08 83 96 04/01/24 21:03 18 04/01/24 21:03 98.4 F 88 18 128/59 L 97 04/01/24 21:00 84 98/57 L 04/01/24 20:58 101 H 89/50 L 98 04/01/24 20:53 81 98 04/01/24 20:52 80 105/59 L 04/01/24 20:48 82 98 04/01/24 20:47 75 106/53 L 04/01/24 20:43 92 H 97 04/01/24 20:42 75 94/50 L 04/01/24 20:38 98 04/01/24 20:38 81 04/01/24 20:38 83 100/51 L O2 Del Method 04/02/24 03:45 Room Air 04/01/24 23:47 04/01/24 23:45 04/01/24 23:33 04/01/24 23:18 04/01/24 23:15 04/01/24 23:03 04/01/24 22:48 04/01/24 22:45 04/01/24 22:33 04/01/24 22:30 04/01/24 22:18 04/01/24 22:15 04/01/24 22:11 04/01/24 22:00 04/01/24 21:48 04/01/24 21:46 04/01/24 21:45 04/01/24 21:43 04/01/24 21:41 04/01/24 21:38 04/01/24 21:37 04/01/24 21:34 04/01/24 21:33 04/01/24 21:28 04/01/24 21:26 04/01/24 21:23 04/01/24 21:21 04/01/24 21:19 04/01/24 21:18 04/01/24 21:14 04/01/24 21:13 04/01/24 21:11 04/01/24 21:08 04/01/24 21:03 04/01/24 21:03 04/01/24 21:00 04/01/24 20:58 04/01/24 20:53 04/01/24 20:52 04/01/24 20:48 04/01/24 20:47 04/01/24 20:43 04/01/24 20:42 04/01/24 20:38 04/01/24 20:38 04/01/24 20:38
[2024-04-02] MEDS: bisacodyL 5 MG TABEC PO SCH (20:40)
[2024-04-02 20:48] VITALS: BP 98/61; PULSE 67; RESP 16; TEMP 98.6; O2SAT 97
[2024-04-03] MEDS ORDERED: bisacodyL 10 MG SUPP PR PRN (21:46)
== END 2024-04-02 22:40 | disposition home or self-care (01) | DRG 807 ==
LOC: OPB 16:51 → 4S1 16:52 → 4E2 04-02 00:44